=== PATIENT | female | born 2000 | race African-American/Black ===

== ENCOUNTER 2024-08-19 14:44 | Emergency (ER) | payer OTHER ==
[~2024-08-19] VITALS: Ht 157.5 cm; Wt 52.2 kg
[2024-08-19] MEDS ORDERED: LEVE250T2 PO (15:00)
[2024-08-19] MEDS: IBUPROFEN 800 MG TABLET PO ONE (15:30)
[2024-08-19] MEDS ORDERED: IBUPROFEN 800 MG TABLET ONE (15:33)
[2024-08-19 15:44] LABS: BASOPHILS % (AUTO) 0.1 % (0.0-2.0); HEMATOCRIT 37.3 % (31.2-41.9); HEMOGLOBIN 12.2 g/dL (10.9-14.3); LYMPHOCYTES # (AUTO) 0.8 K/uL (0.8-4.8); MEAN CORPUSCULAR HEMOGLOBIN 29.4 uug (24.7-32.8); MEAN CORPUSCULAR HGB CONC 33 g/dL (32.3-35.6); MEAN CORPUSCULAR VOLUME 89.6 fL (75.5-95.3); MONOCYTES # (AUTO) 0.5 K/uL (0.1-1.30); MONOCYTES % (AUTO) 7.5 % (0.0-11.0); NEUTROPHILS % (AUTO) 79.4 % (38.5-71.5); PLATELET COUNT (AUTO) 183 K/uL (179-408); RED BLOOD CELL COUNT(AUTO) 4.16 MIL/uL (3.63-4.92); RED CELL DISTRIBUTION WIDTH 13.1 % (12.3-17.7); WHITE BLOOD COUNT (AUTO) 6.3 K/uL (3.8-11.8)
[2024-08-19 15:46] LABS: DIFFERENTIAL COMMENT 1
[2024-08-19 15:52] LABS: CALCIUM 8.2 mg/dL (8.5-10.1); CARBON DIOXIDE 25 mmol/L (21-32); CHLORIDE 105 mmol/L (98-107); CREATININE 0.8 mg/dL (0.6-1.3); GLUCOSE 84 mg/dL (74-106); POTASSIUM 3.5 mmol/L (3.5-5.1); SODIUM SERUM 140 mmol/L (136-145); UREA NITROGEN, BLOOD 11 mg/dL (7-18)
[2024-08-19 16:01] LABS: ALANINE AMINOTRANSFERASE 17 U/L (14-59); ALBUMIN 3.6 g/dL (3.4-5.0); ALKALINE PHOSPHATASE 69 U/L (50-136); ASPARTATE AMINOTRANSFERASE 21 U/L (15-37); BILIRUBIN,DIRECT 0.2 mg/dL (0.0-0.2); BILIRUBIN,TOTAL 0.4 mg/dL (0.2-1.0); CREATINE KINASE, TOTAL 240 U/L (26-192); TOTAL PROTEIN, SERUM 7.4 g/dL (6.4-8.2)
[2024-08-19] MEDS ORDERED: ONDANSETRON 4 MG/2 ML VIAL ONE (16:30)
[2024-08-19] MEDS ORDERED: MORPHINE SULFATE 4 MG/1 ML DISP.SYRIN ONE (16:30)
[2024-08-19] MEDS: ONDANSETRON 4 MG/2 ML VIAL IV ONE (16:31)
[2024-08-19] MEDS: MORPHINE SULFATE 4 MG/1 ML DISP.SYRIN IV ONE (16:34)
[2024-08-19] MEDS ORDERED: OXYC-128 PO (17:53)
[2024-08-19] MEDS ORDERED: NAPR-1164 PO (17:53)
[2024-08-19 17:55] VITALS: BP 96/59; O2SAT 99
== END 2024-08-19 17:55 | disposition home or self-care (01) ==
LOC: ER 14:46
DX: S40.012A Contusion of left shoulder, initial encounter (principal); S40.011A Contusion of right shoulder, initial encounter; M54.2 Cervicalgia; R10.2 Pelvic and perineal pain; Z79.891 Long term (current) use of opiate analgesic; Z79.899 Other long term (current) drug therapy; X58.XXXA Exposure to other specified factors, initial encounter; Y93.89 Activity, other specified; Y92.008 Other place in unspecified non-institutional (private) residence as the place of occurrence of the external cause; Y99.8 Other external cause status
CPT/HCPCS: 99285; 72125; 96374; 71045; 96375; 80076; 80048; 82550; 85025; 85730; 84484; 84702; 36415; 93005; 72128; 72131; J2405; J2270; A4606; A4663